=== PATIENT | male | born 1985 | race Caucasian/White ===

== ENCOUNTER 2023-01-20 15:24 | Emergency (ER) | payer OTHER ==
[2023-01-20] MEDS ORDERED: Lidocaine 1% 10 ML MDV INJECT ONE (15:40)
== END 2023-01-20 17:08 | disposition home or self-care (01) ==
LOC: JD.ED 15:24
DX: S61.217A Laceration without foreign body of left little finger without damage to nail, initial encounter (principal); S67.197A Crushing injury of left little finger, initial encounter; Z88.8 Allergy status to other drugs, medicaments and biological substances; W23.0XXA Caught, crushed, jammed, or pinched between moving objects, initial encounter; Y99.0 Civilian activity done for income or pay
CPT/HCPCS: 12001; 73140-26-F4; 73140-F4; 99282; 99283; J3490